=== PATIENT | male | born 1995 | race American Indian/Alaskan Native ===

== ENCOUNTER 2020-07-16 03:04 | Emergency (ER) | payer SELFPAY ==
[2020-07-16] MEDS ORDERED: predniSONE 20 MG TAB PO ONE (03:49)
[2020-07-16] MEDS ORDERED: IBUPROFEN 600 MG TAB PO ONE (03:50)
[2020-07-16 03:57] VITALS: BP 155/95
--- NOTE | 2020-07-16 04:01 | Emergency Department Report ---
ED General Adult HPI - General Chief complaint: Skin Rash Stated complaint: ALLERGIC REACTION Source: patient Mode of arrival: Ambulatory Limitations: No Limitations - History of Present Illness Initial comments: Patient is a 25-year-old -Maldivian male with a history of chronic eczema who presents to the ED with acute exacerbation of his chronic eczema By erythematous maculopapular rashes on the abdomen and diffusely on the back with purulent discharge in the abdominal wall for the last 2 months. Patient states that the symptoms got worse especially the last 1 week. Patient states that he has been applying different things on his skin to help alleviate his discomfort of itching and burning sensation including application of topical antibiotics as well as application of toothpaste and other detergent. Patient states that in the last 2 days the symptoms have worsened. Patient denies fever, chills, nausea, vomiting, dizziness, syncope, insect bites, cough, a bdominal pain, chest pain or shortness of breath. MD Complaint: Diffuse erythematous dry scaly rashes -: Gradual, month(s) (2) Location: back, abdomen Radiation: non-radiation Severity scale (0 -10): 7 Quality: burning, aching, sharp, constant Consistency: constant Improves with: none Worsens with: none Associated Symptoms: denies other symptoms, rash (diffuse erythematous painful rashes). denies: chest pain, cough, diaphoresis, loss of appetite, malaise, nausea/vomiting, shortness of breath, syncope, weakness Treatments Prior to Arrival: none - Related Data Previous Rx's Medication Instructions Recorded Last Taken Type Ibuprofen [Motrin] 600 mg PO Q8H PRN #30 tablet 07/16/20 Unknown Rx Prednisone [predniSONE 10 mg 10 mg PO .TAPER #1 tab.ds.pk 07/16/20 Unknown Rx (6-Day Pack, 21 Tabs)] Terbinafine (Nf) [LamiSIL] 250 mg PO QDAY #14 tablet 07/16/20 Unknown Rx Triamcinolone 0.5% [Kenalog 0.5% 1 applic TP TID #1 tube 07/16/20 Unknown Rx CREAM] diphenhydrAMINE [Benadryl CAP] 50 mg PO Q8HR PRN #30 capsule 07/16/20 Unknown Rx Allergies Allergy/AdvReac Type Severity Reaction Status Date / Time No Known Allergies Allergy Unverified 07/16/20 03:07 ED Review of Systems ROS: Stated complaint: ALLERGIC REACTION Other details as noted in HPI Constitutional: denies: chills, fever Eyes: denies: eye pain, eye discharge, vision change ENT: denies: ear pain, throat pain Respiratory: denies: cough, shortness of breath, wheezing Cardiovascular: denies: chest pain, palpitations Endocrine: no symptoms reported Gastrointestinal: denies: abdominal pain, nausea, diarrhea Genitourinary: denies: urgency, dysuria Musculoskeletal: denies: back pain, joint swelling, arthralgia Skin: rash, change in color, pruritus, other (Erythematous maculopapular ulcerated rashes in the abdomen and diffusely on the back with itching). denies: lesions Neurological: denies: headache, weakness, paresthesias Psychiatric: denies: anxiety, depression Hematological/Lymphatic: denies: easy bleeding, easy bruising ED Past Medical Hx - Past Medical History Previous Medical History?: No Additional medical history: Eczema - Surgical History Past Surgical History?: No - Social History Smoking Status: Current Every Day Smoker Substance Use Type: Alcohol, Marijuana - Medications Home Medications: Home Medications Medication Instructions Recorded Confirmed Last Taken Type Ibuprofen [Motrin] 600 mg PO Q8H PRN #30 tablet 07/16/20 Unknown Rx Prednisone [predniSONE 10 mg 10 mg PO .TAPER #1 tab.ds.pk 07/16/20 Unknown Rx (6-Day Pack, 21 Tabs)] Terbinafine (Nf) [LamiSIL] 250 mg PO QDAY #14 tablet 07/16/20 Unknown Rx Triamcinolone 0.5% [Kenalog 0.5% 1 applic TP TID #1 tube 07/16/20 Unknown Rx CREAM] diphenhydrAMINE [Benadryl CAP] 50 mg PO Q8HR PRN #30 capsule 07/16/20 Unknown Rx ED Physical Exam - General Limitations: No Limitations General appearance: alert, in no apparent distress - Head Head exam: Present: atraumatic, normocephalic, normal inspection - Eye Eye exam: Present: normal appearance, PERRL, EOMI Pupils: Present: normal accommodation - ENT ENT exam: Present: normal exam, normal orophraynx, mucous membranes moist, TM's normal bilaterally, normal external ear exam - Neck Neck exam: Present: normal inspection, full ROM - Respiratory Respiratory exam: Present: normal lung sounds bilaterally. Absent: respiratory distress, wheezes, rales, rhonchi, stridor, chest wall tenderness, accessory muscle use, decreased breath sounds - Cardiovascular Cardiovascular Exam: Present: regular rate, normal rhythm, normal heart sounds. Absent: systolic murmur, diastolic murmur, rubs, gallop - GI/Abdominal GI/Abdominal exam: Present: soft, normal bowel sounds. Absent: distended, tenderness, guarding, hyperactive bowel sounds, hypoactive bowel sounds, organomegaly - Extremities Exam Extremities exam: Present: normal inspection, full ROM, normal capillary refill - Back Exam Back exam: Present: normal inspection, full ROM. Absent: tenderness, CVA tenderness (L), muscle spasm, paraspinal tenderness, vertebral tenderness - Neurological Exam Neurological exam: Present: alert, oriented X3, CN II-XII intact, normal gait, reflexes normal - Psychiatric Psychiatric exam: Present: normal affect, normal mood - Skin Skin exam: Present: warm, dry, intact, normal color, rash (Erythematous maculopapular ulcerated rashes diffusely in the abdomen, back), erythema, urticaria ED Course Vital Signs 07/16/20 03:08 Temperature 97.8 F Pulse Rate 99 H Respiratory 18 Rate Blood Pressure 155/95 O2 Sat by Pulse 100 Oximetry ED Medical Decision Making - Medical Decision Making This is a 25-year-old -Maldivian male with a history of chronic eczema who presents to the ED with acute exacerbation of his chronic eczema By erythematous maculopapular rashes on the abdomen and diffusely on the back with purulent discharge in the abdominal wall for the last 2 months. Patient states that the symptoms got worse especially the last 1 week. Patient states that he has been applying different things on his skin to help alleviate his discomfort of itching and burning sensation including application of topical antibiotics as well as application of toothpaste and other detergent. In the ED, patient is alert and oriented x3 and is not in distress. Patient was treated for pain in the ED also given initial oral steroids. On reevaluation, patient's itching improved significantly and patient was discharged home on medications and advised to follow-up with his primary care physician in 5 to 7 days for reevaluation or return to the ED immediately if symptoms get worse. - Differential Diagnosis Eczema; tinea corporis; irritant dermatitis; allergic reaction; Critical care attestation.: If time is entered above; I have spent that time in minutes in the direct care of this critically ill patient, excluding procedure time. ED Disposition Clinical Impression: Irritant dermatitis, Tinea corporis, Itching with irritation, Chronic eczema Disposition: TO HOME OR SELFCARE Is pt being admited?: No Does the pt Need Aspirin: No Condition: Stable Instructions: Pruritus, Body Ringworm, Contact Dermatitis Additional Instructions: Take medication with food, drink plenty of fluids and follow-up with your primary care physician in 7 to 10 days for reevaluation. Return to the ED immediately if symptoms get worse. Prescriptions: diphenhydrAMINE [Benadryl CAP] 50 mg PO Q8HR PRN #30 capsule PRN Reason: Itching Triamcinolone 0.5% [Kenalog 0.5% CREAM] 1 applic TP TID #1 tube Terbinafine (Nf) [LamiSIL] 250 mg PO QDAY #14 tablet Ibuprofen [Motrin] 600 mg PO Q8H PRN #30 tablet PRN Reason: Pain Prednisone [predniSONE 10 mg (6-Day Pack, 21 Tabs)] 10 mg PO .TAPER #1 tab.ds.pk Referrals: [facility] [Provider Group] - 3-5 Days Time of Disposition: 03:59 Print Language: SUDANESE
== END 2020-07-16 05:07 | disposition home or self-care (01) ==
LOC: ED 03:04
DX: B35.4 Tinea corporis (principal); L29.9 Pruritus, unspecified; L30.9 Dermatitis, unspecified; F17.200 Nicotine dependence, unspecified, uncomplicated; F12.90 Cannabis use, unspecified, uncomplicated; Z79.899 Other long term (current) drug therapy
CPT/HCPCS: 99282; J7512

== ENCOUNTER 2020-08-06 18:01 | Emergency (ER) | payer SELFPAY ==
[2020-08-06 18:38] VITALS: BP 148/87
--- NOTE | 2020-08-06 19:53 | Emergency Department Report ---
- General Chief complaint: Skin Rash Stated complaint: BODY RINGWORM Time Seen by Provider: 08/06/20 19:43 Source: patient Mode of arrival: Ambulatory Limitations: No Limitations - History of Present Illness Initial comments: This is a 25-year-old male presents to the ER with complaints of itchy rash all over his body for several months. He was last seen on 16 July at this [facility] room and treated with a steroid Dosepak antifungal cream and Benadryl patient reports no improvement. The itching continues and the rash continues to spread. He denies fever he denies any URI symptoms no other complaint. Patient said he used MD complaint: rash -: month(s) (2 months) Location: chest (Abdomen, groin bilateral hands), buttocks Quality: constant Consistency: constant Improves with: none Worsens with: none (At night), other Context: none Associated symptoms: denies other symptoms Treatments Prior to Arrival: none - Related Data Previous Rx's Medication Instructions Recorded Last Taken Type Ibuprofen [Motrin] 600 mg PO Q8H PRN #30 tablet 07/16/20 Unknown Rx Prednisone [predniSONE 10 mg 10 mg PO .TAPER #1 tab.ds.pk 07/16/20 Unknown Rx (6-Day Pack, 21 Tabs)] Terbinafine (Nf) [LamiSIL] 250 mg PO QDAY #14 tablet 07/16/20 Unknown Rx Triamcinolone 0.5% [Kenalog 0.5% 1 applic TP TID #1 tube 07/16/20 Unknown Rx CREAM] diphenhydrAMINE [Benadryl CAP] 50 mg PO Q8HR PRN #30 capsule 07/16/20 Unknown Rx Hydroxyzine HCl [hydrOXYzine] 50 mg PO Q6HR PRN #21 tablet 08/06/20 Unknown Rx Permethrin 5% [Acticin 5% CREAM] 1 applicatio TP ONCE #1 tube 08/06/20 Unknown Rx Allergies Allergy/AdvReac Type Severity Reaction Status Date / Time No Known Allergies Allergy Unverified 07/16/20 03:07 Abscess Boil HPI - HPI Chief Complaint: Skin Rash Stated Complaint: BODY RINGWORM Time Seen by Provider: 08/06/20 19:43 Home Medications: Previous Rx's Medication Instructions Recorded Last Taken Type Ibuprofen [Motrin] 600 mg PO Q8H PRN #30 tablet 07/16/20 Unknown Rx Prednisone [predniSONE 10 mg 10 mg PO .TAPER #1 tab.ds.pk 07/16/20 Unknown Rx (6-Day Pack, 21 Tabs)] Terbinafine (Nf) [LamiSIL] 250 mg PO QDAY #14 tablet 07/16/20 Unknown Rx Triamcinolone 0.5% [Kenalog 0.5% 1 applic TP TID #1 tube 07/16/20 Unknown Rx CREAM] diphenhydrAMINE [Benadryl CAP] 50 mg PO Q8HR PRN #30 capsule 07/16/20 Unknown Rx Hydroxyzine HCl [hydrOXYzine] 50 mg PO Q6HR PRN #21 tablet 08/06/20 Unknown Rx Permethrin 5% [Acticin 5% CREAM] 1 applicatio TP ONCE #1 tube 08/06/20 Unknown Rx Allergies/Adverse Reactions: Allergies Allergy/AdvReac Type Severity Reaction Status Date / Time No Known Allergies Allergy Unverified 07/16/20 03:07 ED Review of Systems ROS: Stated complaint: BODY RINGWORM Other details as noted in HPI Comment: All other systems reviewed and negative Constitutional: no symptoms reported ED Past Medical Hx - Past Medical History Previous Medical History?: Yes Additional medical history: Eczema - Surgical History Past Surgical History?: No - Social History Smoking Status: Current Every Day Smoker Substance Use Type: Alcohol, Marijuana - Medications Home Medications: Home Medications Medication Instructions Recorded Confirmed Last Taken Type Ibuprofen [Motrin] 600 mg PO Q8H PRN #30 tablet 07/16/20 Unknown Rx Prednisone [predniSONE 10 mg 10 mg PO .TAPER #1 tab.ds.pk 07/16/20 Unknown Rx (6-Day Pack, 21 Tabs)] Terbinafine (Nf) [LamiSIL] 250 mg PO QDAY #14 tablet 07/16/20 Unknown Rx Triamcinolone 0.5% [Kenalog 0.5% 1 applic TP TID #1 tube 07/16/20 Unknown Rx CREAM] diphenhydrAMINE [Benadryl CAP] 50 mg PO Q8HR PRN #30 capsule 07/16/20 Unknown Rx Hydroxyzine HCl [hydrOXYzine] 50 mg PO Q6HR PRN #21 tablet 08/06/20 Unknown Rx Permethrin 5% [Acticin 5% CREAM] 1 applicatio TP ONCE #1 tube 08/06/20 Unknown Rx ED Physical Exam - General Limitations: No Limitations ED Course Vital Signs 08/06/20 18:37 Temperature 98.0 F Pulse Rate 91 H Respiratory 18 Rate Blood Pressure 148/87 [Right] O2 Sat by Pulse 100 Oximetry ED Medical Decision Making - Medical Decision Making 25-year-old male with ongoing itchy rash he was treated couple weeks ago with a ntifungal cream and Benadryl with no improvement rash is progressing he has rash around his abdomen on his hands and his lower back and groin area appears to be scabies infestation. Patient will be treated with permethrin and hydroxyzine for itching.. Critical care attestation.: If time is entered above; I have spent that time in minutes in the direct care of this critically ill patient, excluding procedure time. ED Disposition Clinical Impression: Scabies infestation Disposition: TO HOME OR SELFCARE Is pt being admited?: No Does the pt Need Aspirin: No Condition: Stable Additional Instructions: Apply cream from head to toe and sleep with cream on. In the morning shower. If no improvement in 1 week your you may repeat once. Take medication as prescribed for itching hydroxyzine 1 to 2 tablets every 6 hours as needed for itching. Follow-up with your primary care doctor in 3 to 5 days wash your clothing and your bedding Prescriptions: Permethrin 5% [Acticin 5% CREAM] 1 applicatio TP ONCE #1 tube Hydroxyzine HCl [hydrOXYzine] 50 mg PO Q6HR PRN #21 tablet PRN Reason: Itching Referrals: TESS CROCKETT MD [Staff Physician] - 3-5 Days Time of Disposition: 19:58
== END 2020-08-06 20:28 | disposition home or self-care (01) ==
LOC: ED 18:01
DX: B86 Scabies (principal); F17.200 Nicotine dependence, unspecified, uncomplicated; F12.90 Cannabis use, unspecified, uncomplicated; Z79.899 Other long term (current) drug therapy
CPT/HCPCS: 99282